=== PATIENT | male | born 1965 | race Caucasian/White ===

== ENCOUNTER 2019-08-15 18:23 | Emergency (ER) | payer SELFPAY ==
[2019-08-15] MEDS ORDERED: IPRATROPIUM/ALBUTEROL 0.5-2.5 MG/3 ML AMPUL NEB ONE (19:38)
[2019-08-15] MEDS ORDERED: NORMAL SALINE 1000 ML 1,000 ML IV ONE (19:40)
--- NOTE | 2019-08-15 20:19 | RADIOLOGY REPORT (SQ) ---
EXAM DESCRIPTION: XR CHEST 2 VIEWS COMPLETED DATE/TME: 08/15/2019 19:38 CLINICAL HISTORY: 53 years, Male, Shortness of breath, cough COMPARISON: None. NUMBER OF VIEWS: 2 TECHNIQUE: Frontal and lateral radiograph are obtained LIMITATIONS: None. FINDINGS: Cardiopericardial silhouette is normal. Bilateral hilar enlargement is evident. In addition, there is some degree of vascular indistinctness as well as bilateral perihilar opacity. No definite pneumothorax or large pleural effusion. IMPRESSION: Suspect mild interstitial edema. Bilateral hilar enlargement, indeterminate. Recommend correlation with CT chest. copyright 2010 [employer]- All Rights Reserved
[2019-08-15 21:03] LABS: ABSOLUTE LYMPHOCYTES (AUTO) 1.7 10^3/uL (0.5-4.7); ABSOLUTE MONOCYTES (AUTO) 0.6 10^3/uL (0.1-1.4); ABSOLUTE NEUT (AUTO) 3.8 10^3/uL (1.7-8.2); BASOPHILS % (AUTO) 0.6 % (0-2); HEMATOCRIT 44.9 % (37.9-51.0); HEMOGLOBIN 15.9 g/dL (13.5-17.0); LYMPHOCYTES % (AUTO) 27.1 % (13-45); MEAN CORPUSCULAR HEMOGLOBIN 29.5 pg (27.0-33.4); MEAN CORPUSCULAR HGB CONC 35.3 g/dL (32.0-36.0); MEAN CORPUSCULAR VOLUME 84 fl (80-97); MONOCYTES % (AUTO) 9.8 % (3-13); PLATELET COUNT 208 10^3/uL (150-450); RED BLOOD COUNT 5.38 10^6/uL (4.35-5.55); RED CELL DISTRIBUTION WIDTH 12.9 % (11.5-14.0); SEGMENTED NEUTROPHILS % (AUTO) 62.5 % (42-78); TOTAL CELLS COUNTED % (AUTO) 100 %; WHITE BLOOD COUNT 6.1 10^3/uL (4.0-10.5)
--- NOTE | 2019-08-15 21:22 | ER Document Report ---
ED General - General Chief Complaint: Shortness Of Breath Stated Complaint: DIFFICULTY BREATHING Time Seen by Provider: 08/15/19 19:32 Primary Care Provider: SHARITA WORTHY PA-C [Primary Care Provider] - Follow up as needed Mode of Arrival: Ambulatory Information source: Patient TRAVEL OUTSIDE OF THE [place] IN LAST 30 DAYS: No - HPI Onset: Other - over the last 2 weeks Onset/Duration: Gradual Quality of pain: No pain, Pressure Severity: Moderate Pain Level: 2 Associated symptoms: Nonproductive cough, Shortness of breath, Sweating, Weakness Exacerbated by: Other - exertion, coughing, taking deep breaths Relieved by: Other - rest Similar symptoms previously: No Recently seen / treated by doctor: No Notes: 53 year old male with a history of hypertension and chronic sinus issues here for 2 weeks of cough, congestion, chest pains, sore throat. The patient said his symptoms started like a chronic sinus issue with congestion, sore throat, and a dry cough. The patient says these symptoms lingered and then his throat started hurting him. The patient looked in his throat last week and noticed his uvula and tonsils were red and swollen. The patient then noticed he needed to sleep sitting upright with pillows since he started to cough and get short of breath if he laid flat. The patient denies fevers. - Related Data Allergies/Adverse Reactions: No Known Allergies Allergy (Unverified 08/15/19 19:37) Past Medical History - General Information source: Patient - Social History Smoking Status: Never Smoker Chew tobacco use (# tins/day): No Frequency of alcohol use: Occasional Drug Abuse: None Lives with: Family Family History: Reviewed & Not Pertinent Patient has suicidal ideation: No Patient has homicidal ideation: No - Past Medical History Cardiac Medical History: Reports: Hx Hypertension Renal/ Medical History: Reports: Hx Kidney Stones Review of Systems - Review of Systems Constitutional: No symptoms reported, Weakness EENT: Nose congestion, Sinus pressure, Throat pain, Throat swelling Cardiovascular: No symptoms reported Respiratory: Cough, Short of breath Gastrointestinal: No symptoms reported Genitourinary: No symptoms reported Male Genitourinary: No symptoms reported Musculoskeletal: No symptoms reported Skin: No symptoms reported Hematologic/Lymphatic: No symptoms reported Neurological/Psychological: No symptoms reported -: Yes All other systems reviewed and negative Physical Exam - Vital signs Vitals: Temp Pulse Resp BP Pulse Ox 99.7 F 117 H 20 119/83 92 08/15/19 19:20 08/15/19 19:20 08/15/19 19:20 08/15/19 19:20 08/15/19 19:20 - Notes Notes: GENERAL: Well-appearing, well-nourished and in no acute distress. HEAD: Atraumatic, normocephalic. EYES: Pupils equal round and reactive to light, extraocular movements intact, sclera anicteric, conjunctiva are normal. ENT: Nares patent, oropharynx with erythema and swelling of the uvula and tonsils but without exudates. Moist mucous membranes. NECK: Normal range of motion, supple without lymphadenopathy or JVD. LUNGS: Breath sounds clear to auscultation bilaterally and equal. No wheezes rales or rhonchi. HEART: Tachycardic without murmurs, rubs or gallops. ABDOMEN: Soft, nontender, normoactive bowel sounds. No guarding, no rebound. No masses appreciated. EXTREMITIES: Normal range of motion, no pitting or edema. No clubbing or cyanosis. NEUROLOGICAL: Cranial nerves II through XII grossly intact. Normal speech, normal gait. PSYCH: Normal mood, normal affect. SKIN: Warm, Dry, normal turgor, no rashes or lesions noted. Course - Re-evaluation Re-evalutation: 08/16/19 01:55 The patient is somewhat hypoxic and was tachycardic initially during his ER stay. The patient had a clear chest xray but CTA showed ground glass opacities concerning for atypical infection or an inflammatory process. The timing of the contrast was off so evaluation of peripheral PE was not adequet but no central PE was seen. The patient felt better after treatment with a neb and steroids. Will treat patient with Zpack and Prednisone as an outpatient (he did not want to be admitted) and have him follow up with his PCP and possibly Pulmonology if symptoms persist despite treatment. Patient has not been exposed to any chemical inhalants or irritants recently. Patient was given strict ER return instructions for signs and symptoms of a PE. Patient also told to return to an ER for trouble breathing, shortness of breath or if worse. Patient's Trop and BNP were normal in the ER and his EKG was unremarkable making ACS unlikely. - Vital Signs Vital signs: Temp Pulse Resp BP Pulse Ox 99.7 F 117 H 27 H 114/69 89 L 08/15/19 19:20 08/15/19 19:20 08/16/19 01:01 08/16/19 01:00 08/16/19 01:01 - Laboratory Result Diagrams: 08/15/19 20:50 08/15/19 20:50 Laboratory results interpreted by me: 08/15/19 20:50 Sodium 133.6 L Chloride 92 L BUN 25 H Glucose 141 H AST 146 H ALT 105 H - Diagnostic Test Radiology reviewed: Image reviewed, Reports reviewed - EKG Interpretation by Me EKG shows normal: Sinus rhythm Rate: Tachycardia Rhythm: NSR [place]/QRS: Right axis deviation When compared to previous EKG there are: Previous EKG unavailable Additional EKG results interpreted by me: 08/15/19 21:50 q wave inversions in II, III, aVF. T wave inversions in III Discharge - Discharge Clinical Impression: Atypical pneumonia, Hypoxemia Condition: Stable Disposition: HOME, SELF-CARE Instructions: Pneumonia ([facility]) Additional Instructions: Take Azithromycin and Prednisone as prescribed starting on 08/17/19. Follow up with your primary care doctor and consider follow up with a Mlt. You had a clear chest Xray but the CTA of your chest showed ground glass opacities concerning for an infection or inflammatory process. Prescriptions: Azithromycin 250 mg PO DAILY #4 tablet Prednisone [Deltasone 20 mg Tablet] 3 tab PO DAILY 4 Days #12 tablet Albuterol Sulfate [Proair HFA Inhalation Aerosol 8.5 gm MDI] 2 puff IH Q4H PRN #1 mdi PRN Reason: Referrals: SHARITA WORTHY PA-C [Primary Care Provider] - Follow up as needed
[2019-08-15 21:25] LABS: ALBUMIN 3.9 g/dL (3.5-5.0); ALKALINE PHOSPHATASE 72 U/L (38-126); ANION GAP 13 (5-19); ASPARTATE AMINO TRANSFERASE 146 U/L (17-59); BILIRUBIN,DIRECT 0.4 mg/dL (0.0-0.4); BILIRUBIN,TOTAL 0.5 mg/dL (0.2-1.3); BLOOD UREA NITROGEN 25 mg/dL (7-20); CALCIUM 8.6 mg/dL (8.4-10.2); CARBON DIOXIDE 29 mmol/L (22-30); CHLORIDE 92 mmol/L (98-107); GLUCOSE 141 mg/dL (75-110); POTASSIUM 3.6 mmol/L (3.6-5.0); TOTAL PROTEIN 7.6 g/dL (6.3-8.2)
--- NOTE | 2019-08-15 22:48 | EKG REPORT ---
SEVERITY:- ABNORMAL ECG - SINUS TACHYCARDIA CONSIDER ANTEROSEPTAL INFARCT ABNORMAL T, CONSIDER ISCHEMIA, INFERIOR LEADS : Confirmed by: Meera Matthew MD 15-Aug-2019 22:47:48
--- NOTE | 2019-08-16 | RADIOLOGY REPORT (SQ) ---
EXAM DESCRIPTION: CT CHEST ANGIOGRAPHY WITHOUT THEN WITH IV CONTRAST COMPLETED DATE/TME: 08/15/2019 21:36 CLINICAL HISTORY: 53 years, Male, SOB, CP X2 WEEKS COMPARISON: None. TECHNIQUE: Contrast enhanced CT of the chest was acquired after the uneventful administration of 75 mL of Omnipaque 350 intravenous contrast. MIPS were created. Images stored on PACS. All CT scanners at this facility use dose modulation, iterative reconstruction, and/or weight based dosing when appropriate to reduce radiation dose to as low as reasonably achievable (ALARA). [facility]: Dose Right [facility]: CareDose [facility]: Dose Right [facility]: Teradose 4D [facility]: [employer] LIMITATIONS: None. FINDINGS: Central airways are patent. Lung windows show multifocal groundglass opacity throughout both lungs, most pronounced within the periphery of both lungs in a mid upper zone predominant distribution. Some degree of subpleural sparing is evident. There may be some degree of septal thickening about both lung apices. No suspicious pulmonary nodules are evident. Mediastinal windows show a few mildly prominent mediastinal lymph nodes. For example, there is a mildly enlarged pretracheal lymph node measuring 1.1 x 1.4 cm in size on image 41 of series 3. There is also a mildly enlarged subcarinal lymph node measuring 2.0 x 1.3 cm in size on image 50 of series 3. Additional mildly prominent bilateral hilar lymph nodes are also evident. Calcifications are evident about the coronary vessels and thoracic aorta. The study is essentially nondiagnostic for the evaluation of pulmonary emboli secondary to inadequate contrast bolus timing. No large central filling defects are identified within the main or right/left pulmonary arteries on this examination. Limited evaluation of the upper abdomen reveals that the liver is diffusely low in attenuation relative to the spleen. Areas of focal fatty sparing are suspected adjacent to the gallbladder fossa. An area of hyperdensity is noted about the upper pole of the left kidney measuring 2.9 x 1.4 cm in size on image 127 of series 3. This most likely corresponds to a calculus. No additional suspicious findings are evident within the imaged upper abdomen. Bone windows show no destructive osseous lesions IMPRESSION: Essentially nondiagnostic study for the evaluation of pulmonary emboli secondary to inadequate contrast bolus timing. No large central filling defects are identified. Multifocal groundglass opacity throughout both lungs in a mid to upper zone predominant distribution with elements of subpleural sparing. Overall, this is nonspecific, and potentially related to an atypical infectious/inflammatory process to include viral pneumonia, acute eosinophilic pneumonia, or interstitial edema. Given the presence of subpleural sparing, nonspecific interstitial pneumonitis is a possibility though the upper zone predominant distribution is considered atypical. Statistically, viral pneumonia is considered most likely. Mediastinal and bilateral hilar lymph node enlargement, likely reactive. Left nephrolithiasis. Hepatic steatosis. TECHNICAL DOCUMENTATION: Quality ID # [id number]: Final reports with documentation of one or more dose reduction techniques (e.g., Automated exposure control, adjustment of the mA and/or kV according to patient size, use of iterative reconstruction technique) copyright 2011 [employer]- All Rights Reserved
[2019-08-16] MEDS ORDERED: METHYLPREDNISOLONE INJ 125 MG/2 ML SDV IV ONE (00:47)
[2019-08-16 01:44] LABS: A TYPE INFLUENZA AG NEGATIVE (NEGATIVE); B INFLUENZA AG NEGATIVE (NEGATIVE)
[2019-08-16 02:27] VITALS: BP 96/53
== END 2019-08-16 02:27 | disposition home or self-care (01) ==
LOC: ER 18:23
DX: J18.8 Other pneumonia, unspecified organism (principal); R09.02 Hypoxemia; R06.02 Shortness of breath; R05 Cough; R61 Generalized hyperhidrosis; R53.1 Weakness; R09.81 Nasal congestion; R07.9 Chest pain, unspecified; J02.9 Acute pharyngitis, unspecified; I10 Essential (primary) hypertension
CPT/HCPCS: 93005; 94640; 99284; 96361; 96374; 36415; 87070; 87880; 85025; 80053; 84484; 87804; 83880; 71046; 71275; 93010; J2930; J7030; J7620